=== PATIENT | female | born 1970 | race Asian ===

== ENCOUNTER 2017-12-19 12:32 | Emergency (ER) | payer OTHER ==
[~2017-12-19] VITALS: Ht 162.6 cm; Wt 96.6 kg
[2017-12-19] MEDS ORDERED: LISI10TA11 PO (12:48)
[2017-12-19] MEDS ORDERED: METFORMIN ER1000 MG PO (12:49)
[2017-12-19] MEDS ORDERED: LANTUS100 MG/ML SC (12:50)
[2017-12-19] MEDS ORDERED: NOVOLOG100 MG/ML SC (12:51)
== END 2017-12-19 14:45 | disposition home or self-care (01) ==
LOC: ED 12:32
DX: S89.81XA Other specified injuries of right lower leg, initial encounter (principal); W18.39XA Other fall on same level, initial encounter; Y92.89 Other specified places as the place of occurrence of the external cause
CPT/HCPCS: 96374; 99283; J1170

== ENCOUNTER 2021-07-01 14:15 | Outpatient (CLI) | payer OTHER ==
[~2021-07-01 14:15] MED LIST: LANTUS100 MG/ML SC; LISI10TA11 PO; METFORMIN ER1000 MG PO; NOVOLOG100 MG/ML SC
== END 2021-07-01 19:41 | disposition home or self-care (01) ==
LOC: MAMMO 14:15
PROVIDERS: ATTEND Family Medicine
DX: Z12.31 Encounter for screening mammogram for malignant neoplasm of breast (principal)

== ENCOUNTER 2021-08-09 09:28 | Outpatient (CLI) | payer OTHER | END 2021-08-09 20:01 | disposition home or self-care (01) | LOC: RAD 09:28 | PROVIDERS: ATTEND Family Medicine | DX: M25.561 Pain in right knee (principal) ==

== ENCOUNTER 2023-06-13 11:33 | Outpatient (CLI) | payer OTHER | END 2023-06-13 20:24 | disposition home or self-care (01) | LOC: RAD 11:33 | PROVIDERS: ATTEND Family Medicine | DX: M25.552 Pain in left hip (principal); M25.551 Pain in right hip ==